=== PATIENT | female | born 2000 | race Caucasian/White ===

== ENCOUNTER → 2018-02-15 11:49 | Outpatient (CLI) | payer OTHER, SELFPAY ==
[2018-02-15 16:40] LABS: Chlamydia Trachomatis by PCR Negative (Negative); Neisserai gonorrhoeae by PCR Negative (Negative); Probe Check PASS; Sample Adequacy Control PASS; Specimen Processing Control PASS
--- OUTSIDE RECORDS SUMMARY | 2018-05-20 02:04 | XMS RPT_ITS ---
:2000 Author Organization [facility] Care Team Providers Name Role Phone Tiffanie Carter Attending Unavailable Wood, Yuridia L Attending Unavailable Goodrich, Christopher Primary Care Unavailable Wood, Yuridia L Admitting Unavailable Goodrich, Christopher Admitting Unavailable Goodrich, Christopher Attending Unavailable Goodrich, Christopher Primary Care Unavailable Goodrich, Christopher Primary Care Unavailable Wood, Yuridia L Admitting Unavailable Wood, Yuridia L Attending Unavailable Newbill, Blas Ortez Admitting Unavailable Newbill, Blas Ortez Attending Unavailable Goodrich, Christopher Primary Care Unavailable Newbill, Blas Ortez Admitting Unavailable Newbill, Blas Ortez Attending Unavailable Goodrich, Christopher Primary Care Unavailable Newbill, Blascassy Melvinel Admitting Unavailable Newbill, Blas Ortez Attending Unavailable Goodrich, Christopher Primary Care Unavailable ASAF SAMUEL Attending Unavailable UNKNOWN, PCP Referring Unavailable Goodrich, Christopher Primary Care Unavailable ASAF SAMUEL Attending Unavailable Goodrich, Christopher Primary Care Unavailable PROBLEMS PROBLEMS DATE TYPE CONDITION / CODE ATTENDING STATUS SOURCE 02/17/2018 Admitting Pain in left ASAF SAMUEL [facility] diagnosis finger(s) / [facility] Hospit[facility] M79.645(ICD-10) Repository 02/17/2018 Final diagnosis Pain in left ASAF SAMUEL [facility] (discharge) finger(s) / [facility] Hospit[facility] M79.645(ICD-10) Repository 02/16/2018 Unknown Z11.3 - Encounter Joaquin Carter for screening for [facility] infections with a Hospital predominantly Repository sexual mode of transmission / Z11.3(ICD-10) PROCEDURES PROCEDURES No Procedure Records FoundRESULTS RESULTS INITIAL VISIT Observed: 02/23/2018 Status: UNK Source: [place] (ORTHOPAEDIC SURGERY) 2:28 PM HOSPITALS REPOSITORY Chief Complaint Pt here for left middle finger evaluation. /kellie History of Present Illness ASSESSMENT + PLAN : Left long finger PIP sprain, resolving I reviewed that the x-rays do not show a fracture today. I cannot rule out a healed nondisplaced fracture. I discussed that this was most likely an interphalangeal sprain, and reviewed the long expected duration of swelling and mild discomfort with that diagnosis. Joint is stable at this point, and thus you may advance activity with no restrictions. Follow-up with any additional concerns. 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 In October she was playing softball, diving for the ball and struck her left lo ng fingertip. She had pain and swelling. She was seen by the team and x-rays were reportedly normal. She has continued swelling at the PIP joint upon return home for winter break to [place] and th us comes in for a second opinion. Her motion has normalized. No subjective instability. She and family denies other significant injury to that finger in the past. No other active upper extremity concern s. Pain is aching at baseline but becomes more significant and sharp with radial or ulnar-sided load to the digit. She is not diabetic and does not smoke. Review of Systems A 30-item multi-system Review Of Systems was obtained on today's intake form. This was reviewed with the patient and is correct. The pertinent positives and negatives are listed above. The form has been scanned separately into the medical record. Active Problems Pain of finger of left hand (729.5) (M79.645) Physical Exam Constitutional: Appears stated age. Well-developed and well- nourished female in no acute distress. Psychiatric: Pleasant normal mood and affect. Behavior is appropriate for the situation. Head: Normocephalic and atraumatic. Eyes: Pupils are equal and round. Cardiovascular: 2+ radial and ulnar pulses. Fingers well-perfused. Respiratory: Effort normal. No respiratory distress. Speaking in complete sentences. Neurologic: Alert and oriented to person, place, and time. Skin: Skin is intact, warm and dry. Hematologic / Lymphatic: No lymphedema or lymphangitis. Extremities / Musculoskeletal: Skin of the left long finger and hand is intact with no erythema, ecchymosis, or generalized swelling. There is mild fusiform PIP swelling. Joint is stable to varus and valgus stress, though with mild discomfort in both directions. No hyperextension instability, though again mild discomfort. Full composite flexion and extension. Good sagittal plane balance. Tendons intact by individual testing. Gayle l rotation with no scissoring. Sensation intact to light touch in all distributions. Capillary refill less than 2 seconds. Results/Data X-rays left long finger independently interpreted by me today shows no acute fracture, subluxation, foreign body. The joint spaces are concentric and well preserved. Diagnoses/Problems Sprain of interphalangeal joint of left middle finger, initial encounter (842.13) (S63.633A) FINGER(S), MIN 2 VIEWS Observed: 02/17/2018 Status: F Source: [place] 10:10 AM HOSPITALS REPOSITORY Patient Name: LIS CELAYA STUDY: FINGER(S), MIN 2 VIEWS; 02/17/2018 10:10 am INDICATION: Signs/Symptoms: long finger pain. COMPARISON: None. ACCESSION NUMBER(S): [id number] ORDERING CLINICIAN: ASAF SAMUEL FINDINGS: Three views of the left 3rd finger obtained. No acute fracture or osseous displacement. Joint spaces are preserved. Fusiform soft tissue swelling near the level of the PIP joint. No definite erosive change identified. IMPRESSION: Soft tissue swelling at the level of the PIP joint. No acute osseous finding. Electronically signed by: ZENIA BEDOLLA MD CT/NG [facility] BY PCR Collected: 02/15/2018 Status: F Source: [place] 10:30 AM [facility] REPOSITORY Order Comment: PLEASE RUN TESTING ON URINE PROVIDED. TYPE CODE TESTS RESULT OUT OF RANGE REFERENCE UNITS LAB L8200.2100 Negative Normal Chlam Negative Trac PCR LAB L8200.2200 Negative Normal NG by Negative PCR Performed By: #### L8200.2000 #### [facility] [address] [place], [place], [id number] LAB MISCELLANEOUS Collected: 10/05/2017 Status: F Source: [place] 3:15 PM [facility] REPOSITORY TYPE CODE TESTS RESULT OUT OF RANGE REFERENCE UNITS LAB [id number](L OINC) Hgb Normal Test Name Solubility LAB [id number](L OINC) See Ref Normal Status Lab Report Performed By: #### [id number] #### [facility] Send Outs Subsection [address] [id number] HEP FUNC PANEL Collected: 05/05/2017 Status: F Source: [place] 9:23 AM [facility] REPOSITORY TYPE CODE TESTS RESULT OUT OF RANGE REFERENCE UNITS LAB [id number](L 10-40 Int._Unit/L OINC) Normal ALT 15 LAB [id number](L 10-42 Int._Unit/L OINC) Normal AST 18 LAB [id number](L 3.2-5.0 G/DL OINC) Normal Albumin Lvl 4.1 LAB [id number](L 2.0-4.0 G/DL OINC) Normal Globulin 3.3 LAB [id number](L 1.1-1.9 ratio OINC) Normal A/G Ratio 1.2 LAB [id number](L 42-121 Int._Unit/L OINC) Normal Alk Phos 58 LAB [id number](L .00-.20 mg/dL OINC) Normal Bili Direct <.10 LAB 77497316(L OINC) Normal Bili Indirect >0.7 Result Comment: No established ranges available for the Indirect Biliruben. LAB [id number](LOINC) 0.2-1.0 mg/dL Normal Bili Total 0.8 LAB [id number](LOINC) 6.4-8.3 G/DL Normal Total Protein 7.4 Performed By: #### [id number] #### [facility] [place] [address] ALLERGIES ALLERGIES DATE TYPE / CODE NAME / CODE REACTION SEVERITY SOURCE Drug/044078 No Known Restoration 003(SNOMED Allergies [facility] CT) System Repository Drug/582404 No Known Restoration 003(SNOMED Medication [facility]) Allergies System Repository ENCOUNTERS ENCOUNTERS ADMIT/DISCHARGE ACCOUNT NUMBER ADMITTING ENCOUNTER LOCATION SOURCE CLASS 02/17/2018 [id number] Ambulatory [facility] Repository 02/17/2018 [id number] Ambulatory [address] [place] [address] Repository 02/15/2018 [id number] Ambulatory [facility] ing:[facility]SPEC Repository 10/05/2017/ [id number] Newmadi Blas Ambulatory Restoration Restoration [address] [facility] Repository 10/05/2017/ [id number] [facility] Restoration 018 [facility] :[facility] Repository 10/05/2017/ [id number] Radha Blas Ambulatory [facility] Restoration 018 [facility] :QCareRoom: [facility] Repository 10/05/2017 [id number] Ambulatory [address] [place] [address] Repository 05/05/2017/ [id number] Yuridia Bethea Ambulatory Restoration Restoration 018 L [facility] ing[facility] Repository 04/13/2017/ [id number] [facility] Restoration 018 [facility] Repository 03/30/2017/ [id number] Yuridia Bethea Ambulatory Medical Restoration 018 L [facility]: System Med Repository AssocRoom: Room 1 PAYERS PAYERS ENCOUNTER GUARANTOR PAYER SUBSCRIBER SOURCE 02/17/2018 LIS HAYS [facility] HICKEYDOB: Insurance:Medical HICKEYDOB: Hospitals [id number] BOX [facility] [id number] Repository [place] Number: TASH SIMS [id number]: [id number] [place] [id number]: Date:Plan Name:[facility] () () 02/17/2018 LIS HAYS [facility] HICKEYDOB: Insurance:Medical HICKEYDOB: Hospitals [id number] BOX [facility] [id number] Repository [place] Number: [address], [id number]: [id number] [place] [id number]: Date:Plan Name:[facility] () () 02/15/2018 LIS JEAN BAPTISTE Primary KIMBER Iyer [facility], Insurance:MEDICAL HICKEYDOB: [place] [id number]: . [facility] [id number] Hospital () Number: Repository [id number] Date:[id number] [address], [place] [address]LB: 02/15/2018 Secondary NOT GIVENUNK [employer] Insurance:SELF PAY [facility] Number: Effective Repository Date:2018-02-15 10/05/2017 LIS Espino Primary KIMBER Espino Restoration [facility] Insurance:Medical HICKEYDOB: [facility] [id number] [facility] Number: [id number] System [address] Repository [place], [place] Date:2017-10-05 [place] [address]Osm: [id number] [place], [place] Name:[facility] [address]Smz: () [facility] [address]NFXRUWTJM, [place] [id number]: [phone] () [phone] () 10/05/2017 LIS Srinivas Vincent [facility] Insurance:1500 HICKEYDOB: [facility] [id number] [facility] [id number] [address] Number: Effective [address] Repository [place], [place] Date:2017-10-05 CYRUS [address]Bng: [id number] [place], [place] Name::[id number] [phone]: (HP) [address] [address]GW: [phone]) (HP) [phone] (WP) 10/05/2017 LIS Srinivas [facility] KIMBER Vincent [facility] Insurance:[address] [place], [place] [address]KEYDOB: [facility] [id number] [facility] [id number] [address] Number: Effective [address] Repository [facility] [place] Date:2017-10-05 - HIALEAH [address]Bsy: [id number] [place], [place] Name::[id number] [address]Xwr: (HP) [address] [address]UN: [phone]) (HP) [phone] (WP) 10/05/2017 LIS Srinivas [facility] KIMBER [facility] Insurance:Medical [id number] Hospitals [id number] [facility] Repository [address] [place] [address] Number: [id number]: [id number] Date:Plan Name:Health () 10/05/2017 [facility] Insurance:Medical [facility] [id number] Repository Number: [facility] 17SAVANDAVID, [id number] [place] [id number]: Date:Plan Name:Health () 05/05/2017 LIS Srinivas [facility] KIMBER Vincent [facility]: Insurance:Medical [facility]: [facility] [id number] [facility] Number: [id number] [address] Repository [facility], [place] Date:2017-05-05 - [place]IALE[address] [address]Ozt: [id number] [place], [place] Name:[facility] [address]Lbx: (HP) [address]TCN[address], [place] [phone]: [phone]) (HP) [phone] (WP) 04/13/2017 LIS NICHOLSB: Insurance:Medical [facility] [id number] [address] [facility] Number: [id number] [address] Repository [place], [place] Date:2017-04-10 [place] [address]Qgg: [id number] [place], [place] Name:[facility] [address]Ejn: (HP) [address] [place] [address]UH: [phone]) (HP) [phone] (WP) 03/30/2017 LIS CELAYADOB: Insurance:1500 [facility] [id number] [facility] MEDICAL MUTUALPolicy [id number] System [address] [place] [address] Number: [address] Repository [place], [place] Date:2017-03-30 [place]IALE[address] [address]Kac: [id number] [place], [place] Name:CD:[id number] [phone]: (HP) [address] [place] [address]MI: [phone]) (HP) [phone] (WP)
== END ==
PROVIDERS: Visit Provider Obstetrics & Gynecology
DX: Z11.3 Encounter for screening for infections with a predominantly sexual mode of transmission (principal)
CPT/HCPCS: 87491; 87591

== ENCOUNTER 2018-08-31 19:35 | Emergency (ER) | payer OTHER, SELFPAY ==
[2018-08-31 19:36] VITALS: BP 94/36; PULSE 97; RESP 18; TEMP 37.4; O2SAT 99; BMI 23.3
[2018-08-31 20:54] LABS: Bacteria 0 SEEN /hpf (None Seen)
[2018-08-31 20:59] LABS: Color, Urine Yellow (Yellow); Glucose, Dipstick Normal (Normal); Leukocyte Esterase-Dipstick 500 /ul (Negative); Nitrite-Dipstick Negative (Negative); Occult Blood-Urine 10 /ul (Negative); Protein-Dipstick 30 mg/dl (Negative); Urine Clarity Sl. Cloudy (Clear); Urine Urobilinogen 4 mg/dl (Normal); Urine pH 6.5 (5.0 - 8.0)
[2018-08-31 21:02] LABS: Internal QC Validated? YES +Cl - CLEAR BKGD; Pregnancy, Urine Negative Negative; Urine Bilirubin Dipstick 1 mg/dL (Negative)
[2018-08-31 21:06] LABS: Ketone-Dipstick 150 mg/dl (Negative)
[2018-08-31 21:09] LABS: Squamous Epithelial Cells - UA 0-5 SEEN /hpf (5-10)
[2018-08-31 21:11] LABS: Mucous, Urine 4+ /hpf (<or=2+); Red Blood Cells-Urine 0-5 SEEN /hpf (0-5); White Blood Cells 50-100 SEEN /hpf (0-5)
--- NOTE | 2018-08-31 22:08 | ED.DCSUM_ITS ---
- ER Visit Summary Date of Service: 08/31/18 Chief Complaint: Dysuria History of Present Illness: The patient is a 17 F presenting with dysuria, abdominal pain. Her symptoms started 4 days ago. She has mid lower abdominal pain. She initially had symptoms of yeast infection and used Monistat. When this did not clear she called her MEDICAL BILLING AND CODING SPECIALIST's [facility] States the symptoms have improved but she now has a vaginal discharge and dysuria. She has had subjective fever. She also complains of sore throat. No difficulty swallowing. She went to urgent care today they did a rapid strep which was negative. Physical Examination: Vitals are stable. Patient is afebrile. Alert no acute distress. HEENT exam is unremarkable. No pharyngeal erythema or exudate. Uvula midline Neck is supple. Lungs are clear and equal bilaterally. Heart is regular rate and rhythm. Abdomen is soft mild suprapubic tenderness with no guarding or rebound Extremities are unremarkable. Skin is warm and dry. No focal neurologic deficit. Remainder of exam is unremarkable. Emergency Department Course and Treatment: hCG negative. Urinalysis shows 50- 100 white blood cells, 0-5 red blood cells, 0-5 epithelial cells. GC chlamydia culture was sent. Urine culture was sent. Patient has never had a pelvic exam and would prefer her first time pelvic be performed by her MEDICAL BILLING AND CODING SPECIALIST at her scheduled appointment. She is given Rocephin and Zithromax. She is given Macrobid. She is advised to follow-up with her MEDICAL BILLING AND CODING SPECIALIST as scheduled. Advised to return the ED for worsening complaints. Disposition: Discharge home Impression: UTI This note was generated with F[employer] dictation software. It may contain incorrect words, spelling, and punctuation that were not noted in review of the chart prior to signing ED Disposition - Plan for ED Patient: Referrals: Rico Goodrich MD [Primary Care Provider] -
--- NOTE | 2018-08-31 22:11 | ED.DEP ---
ED Disposition - Plan for ED Patient: Instructions: Understanding Urinary Tract Infections (UTIs) Prescriptions: Nitrofurantoin Macrocrystals [Macrobid] 100 mg PO Q12 #14 capsule Referrals: Rico Goodrich MD [Primary Care Provider] - Tiffanie Carter MD [STAFF PHYSICIAN] -
[2018-08-31 22:21] LABS: Chlamydia Trachomatis by PCR Negative (Negative); Probe Check PASS
[2018-08-31] MEDS: Azithromycin 250 MG Tablet 1000 MG PO (22:21)
[2018-08-31] MEDS: Nitrofurantoin Macrocrystals 100 MG Capsule PO (22:21)
[2018-08-31 22:22] LABS: Neisserai gonorrhoeae by PCR Positive (Negative)
[2018-08-31] MEDS: Ceftriaxone 500 MG Vial 250 MG IM (22:22)
== END 2018-08-31 23:02 | disposition home or self-care (01) ==
PROVIDERS: Emergency Provider Emergency Medicine; Family Provider Family Medicine; PCP Family Medicine
DX: N39.0 Urinary tract infection, site not specified (principal)
CPT/HCPCS: 81001; 81025; 87086; 87088; 87491; 87591; 96372; 99283